=== PATIENT | female | born 1980 | race Two or more races ===

== ENCOUNTER 2025-03-06 18:22 | Emergency (ER) | payer OTHER, SELFPAY ==
[2025-03-06 18:48] VITALS: BP 145/93; PULSE 94; TEMP 36.9; O2SAT 99; BMI 35.6
--- NOTE | 2025-03-06 20:34 | CT_ITS ---
The [address] [address] Patient Name: BALWINDER WASHINGTON MRN: [id number] date: 1980 Sex: F Assigned Patient Location: ER Current Patient Location: ER Accession/Order Number: [id number] Exam Date: 03/06/2025 21:35 Report Date: 03/06/2025 21:40 At the request of: VIOLETTE LINDER MD Procedure: CT lumbar spine wo con CT LUMBAR SPINE WITHOUT CONTRAST TECHNIQUE: Axial acquisition of the lumbar spine obtained with the sagittal and coronal reconstructed imaging.The CT exam was performed using one or more the following dose reduction techniques: Automated exposure control, adjustment of the MA and/or Kv according to patient size, or use of the iterative reconstruction technique. HISTORY: Right lumbar pain. Right leg radiculopathy COMPARISON: None FINDINGS: The last fully segmented vertebral pair is operationally defined as L5/S1. POST SURGERY CHANGES: None BONY ALIGNMENT: Adequate bony alignment identified. SPINAL CANAL:Patent bony central canal LUMBAR FRACTURE: None BONY LESIONS: None KIDNEYS: No hydronephrosis is identified. AORTA: No aortic aneurysm is seen. Lower thoracic level: Unremarkable L1-2:Unremarkable L2-3: Unremarkable L3-4:Unremarkable L4-5:Disc space narrowing. Mild bony central canal stenosis. Mild bilateral neural foraminal narrowing facet degeneration L5-S1:Mild retrolisthesis. Patent central canal. Moderate bilateral bony neural foraminal narrowing facet degeneration Assessment of disc herniation limited with CT examination. No obvious disc herniation seen with CT exam. 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 No obvious disc herniation seen with CT examination. Continued Concern for disc herniation may be further assessed with MRI of lumbar spine. Impression dictated by: Ascencion Maravilla M.D. 03/06/2025 9:40 PM Dictation Location: [employer] Electronically authenticated by: [id number] Y Date: 03/06/2025 21:40
[2025-03-06 20:45] LABS: Bilirubin Urine NEGATIVE (NEGATIVE); Blood Urine NEGATIVE (NEGATIVE); Clarity Urine CLEAR (CLEAR); Color Urine YELLOW (YELLOW); Glucose Urine UA NEGATIVE (NEGATIVE); Ketones Urine TRACE mg/dL (NEGATIVE); Leukocyte Esterase Urine NEGATIVE (NEGATIVE); Nitrite Urine NEGATIVE (NEGATIVE); Protein Urine NEGATIVE (NEG/TRACE); Specific Gravity Urine 1.025 (1.005-1.025); Urobilinogen Urine 0.2 EU/dL (0.2-1.0)
[2025-03-06 20:46] LABS: Urine Microscopic Indicated NO
[2025-03-06] MEDS: KETOROLAC TROMETHAMINE 30 MG/ML VIAL IVP (21:14)
[2025-03-06 21:28] LABS: Basophils Percent Auto 0.4 % (0.2-2.0); Eosinophils Absolute Auto 0.3 10^3/uL (0.0-0.7); Eosinophils Percent Auto 3.8 % (0.9-7.0); Immature Granulocytes Abs Auto 0.04 10^3/uL (0.00-0.03); Immature Granulocytes Pct Auto 0.4 % (0.0-0.5); Lymphocytes Absolute Auto 2.6 10^3/uL (1.2-3.8); Lymphocytes Percent Auto 28.8 % (20.5-60.0); Mean Corpuscular Hemoglobin 20.5 pg (26.7-34.0); Mean Corpuscular Volume 68.5 fL (81.0-99.0); Mean Platelet Volume 9.6 fL (9.5-13.5); Monocytes Absolute Auto 0.5 10^3/uL (0.3-0.8); Monocytes Percent Auto 5.1 % (1.7-12.0); Neutrophils Absolute Auto 5.5 10^3/uL (1.4-6.5); Neutrophils Percent Auto 61.5 % (43.0-75.0); Platelet Count 289 10^3/uL (150-450); Red Blood Count 4.38 10^6/uL (4.20-5.40); Red Cell Distribution Width 19.8 % (11.0-15.0); White Blood Count 8.9 10^3/uL (4.0-11.0)
[2025-03-06 21:46] LABS: Alanine Aminotransferase 19 U/L (14-59); Albumin Globulin Ratio 0.7; Albumin Level 3.1 g/dL (3.4-5.0); Alkaline Phosphatase 99 U/L (46-116); Aspartate Amino Transferase 17 U/L (15-37); BUN Creatinine Ratio 18.3; Bilirubin Total 0.3 mg/dL (0.2-1.0); Calcium 8.7 mg/dL (8.5-10.1); Carbon Dioxide 25.3 mmol/L (21.0-32.0); Chloride 108 mmol/L (98-107); Estimated GFR (African America >60 (>=60 mL/min/1.73m^2); Estimated GFR (Non-African Ame >60 (>=60 mL/min/1.73m^2); Globulin 4.2 g/dL; Glucose 105 mg/dL (74-106); Potassium 3.3 mmol/L (3.5-5.1); Sodium 140 mmol/L (136-145); Total Protein 7.3 g/dL (6.4-8.2)
--- NOTE | 2025-03-06 21:52 | ED.BACK1 ---
HPI HPI - Back Pain/Injury General Chief Complaint: Back Pain/Injury Stated Complaint: Back pain Time Seen by Provider: 03/06/25 19:11 Source: patient Mode of arrival: walk-in Limitations: no limitations History of Present Illness HPI Narrative: This 44-year-old female presents for evaluation of left low back pain. The symptoms have been present for a couple of weeks but worse over the past couple of days. She was seen at [facility] and told she had a lumbar strain. Since that time she has had episodes of urinary incontinence. The patient states she is able to hold her urine but when she feels the urge to go and stands up to go to the bathroom sometimes she does not make it to the bathroom. She is able to squeeze her vagina and rectum. She denies any weakness or numbness. She denies any fever. She denies any chest pain or shortness of breath. She denies any history of chronic back pain or any injury. Related Data Allergies Allergy/AdvReac Type Severity Reaction Status Date / Time amoxicillin Allergy Hives Verified 03/06/25 18:47 Penicillins Allergy Hives Verified 03/06/25 18:47 Review of Systems ROS Status of ROS 10 or more systems reviewed and unremarkable except as noted in history and below PFSH PFSH Social History Little interest or pleasure in doing things: not at all Feeling down, depressed, or hopeless: not at all Exam Narrative Exam Narrative: Vital signs and Nursing Notes reviewed: Patient is afebrile with a normal pulse, blood pressure is mildly elevated 145/93, she has not hypoxic with pulse ox of 99% on room air General: Awake, alert, oriented, no acute distress, ambulatory without difficulty HEENT: Normocephalic atraumatic, mucous membranes are moist and pink, eyes are clear, normal conjunctiva, vision is grossly intact Neck: Supple, no midline bony vertebral tenderness or step-off Chest: Lungs are clear to auscultation with good air entry, there is no wheezing rhonchi or rales appreciated no accessory muscle use, patient is speaking in complete sentences-no chest wall tenderness to palpation CVS: Regular rate and rhythm S1-S2, no murmurs rubs or gallops, pulses are brisk and equal bilaterally ABD: Soft, obese with pendulous abdomen, non-tender, sensation in lower abdomen is normal. Musc: There is tenderness to palpation in the left lower lumbar region, no midline bony vertebral tenderness or step-off noted, Extremities: Moving all extremities, no lower extremity tenderness or swelling noted, negative Homans' sign, pulses are brisk and equal bilaterally Skin: Normal in appearance without rash,pallor, petechiae or purpura Neuro: No focal deficits, deep tendon reflexes are brisk and equal bilaterally. Patient is able to raise both knees up in a marching fashion and go up on her toes, there is no saddle anesthesia, rectal exam was performed and the patient has good rectal tone and is able to squeeze my finger tightly with her rectum Constitutional Vital Signs, click to edit/add: Last Vital Signs Temp 98.4 F 03/06/25 18:48 Pulse 64 03/06/25 22:25 Resp 20 03/06/25 22:25 BP 128/68 03/06/25 22:25 Pulse Ox 98 03/06/25 22:25 O2 Del Method Room Air 03/06/25 22:25 Course Vital Signs Vital signs: Vital Signs Temperature 98.4 F 03/06/25 18:48 Pulse Rate 94 H 03/06/25 18:48 Respiratory Rate 14 03/06/25 18:48 Blood Pressure 145/93 H 03/06/25 18:48 Pulse Oximetry 99 03/06/25 18:48 Oxygen Delivery Method Room Air 03/06/25 18:48 Temperature 98.4 F 03/06/25 18:48 Pulse Rate 64 03/06/25 22:25 Respiratory Rate 20 03/06/25 22:25 Blood Pressure 128/68 03/06/25 22:25 Pulse Oximetry 98 03/06/25 22:25 Oxygen Delivery Method Room Air 03/06/25 22:25 MDM - Back Pain/Injury MDM Narrative Medical decision making narrative: This 44-year-old female presents for evaluation of left low back pain that started last week and worsened this week. She was seen at [facility] and diagnosed with a lumbar strain. She denies any injury. She has not had any fever. She also complains of some urinary incontinence but states she is able to hold her urine but when she feels the urge to urinate and gets up to go to the bathroom she sometimes leaks urine. Her neuroexam is normal including no saddle anesthesia, normal rectal tone, she is able to squeeze her vagina, deep tendon reflexes are normal. CT scan of the lumbar spine was ordered and routine labs were ordered. She has a normal white count and electrolytes. She is not diabetic. CT scan of the lumbar spine shows moderate L4-L5 and L5-S1 degeneration with moderate L4-L5 bony central canal narrowing. No obvious disc herniation was seen on CT scan and examination. It was recommended the patient have an MRI if there is continued concern for disc herniation. In light of the normal CT findings besides some mild degenerative changes and a normal neuroexam I do not think the patient has cauda equina. She will be discharged home with a prescription for [place], Flexeril and ibuprofen. In emergency department she was medicated with Toradol. I did also order steroids but she has had untoward side effects from using steroids in the past. She was encouraged to follow-up closely with her family physician and return the emergency department for any neurologic symptoms related to her back pain, fever or any concerns. Lab Data Labs: Lab Results 03/06/25 03/06/25 Range/Units 20:25 21:14 WBC 8.9 (4.0-11.0) 10^3/uL RBC 4.38 (4.20-5.40) 10^6/uL Hgb 9.0 L (12.0-16.0) g/dL Hct 30.0 L (36.0-48.0) % MCV 68.5 L (81.0-99.0) fL MCH 20.5 L (26.7-34.0) pg MCHC 30.0 (29.9-35.2) g/dL RDW 19.8 H (11.0-15.0) % Plt Count 289 (150-450) 10^3/uL MPV 9.6 (9.5-13.5) fL Neut % (Auto) 61.5 (43.0-75.0) % Lymph % (Auto) 28.8 (20.5-60.0) % [place] % (Auto) 5.1 (1.7-12.0) % Eos % (Auto) 3.8 (0.9-7.0) % Baso % (Auto) 0.4 (0.2-2.0) % Neut # (Auto) 5.5 (1.4-6.5) 10^3/uL Lymph # (Auto) 2.6 (1.2-3.8) 10^3/uL [place] # (Auto) 0.5 (0.3-0.8) 10^3/uL Eos # (Auto) 0.3 (0.0-0.7) 10^3/uL Baso # (Auto) 0.0 (0.0-0.1) 10^3/uL Abs Immat Gran (auto) 0.04 H (0.00-0.03) 10^3/uL Imm/Tot Granulo (auto) 0.4 (0.0-0.5) % Sodium 140 (136-145) mmol/L Potassium 3.3 L (3.5-5.1) mmol/L Chloride 108 H (98-107) mmol/L Carbon Dioxide 25.3 (21.0-32.0) mmol/L Anion Gap 10.0 BUN 13.0 (7.0-18.0) mg/dL Creatinine 0.71 (0.55-1.02) mg/dL Est GFR ( Amer) >60 (>=60 mL/min/1.73m^2) Est GFR (Non-Af Amer) >60 (>=60 mL/min/1.73m^2) BUN/Creatinine Ratio 18.3 Glucose 105 (74-106) mg/dL Calcium 8.7 (8.5-10.1) mg/dL Total Bilirubin 0.3 (0.2-1.0) mg/dL AST 17 (15-37) U/L ALT 19 (14-59) U/L Alkaline Phosphatase 99 (46-116) U/L Total Protein 7.3 (6.4-8.2) g/dL Albumin 3.1 L (3.4-5.0) g/dL Globulin 4.2 g/dL Albumin/Globulin Ratio 0.7 Urine Color Yellow (YELLOW) Urine Clarity Clear (CLEAR) Urine pH 6.0 (5.0-9.0) Ur Specific [place] 1.025 (1.005-1.025) Urine Protein Negative (NEG/TRACE) mg/dL Urine Glucose (UA) Negative (NEGATIVE) mg/dL Urine Ketones Trace A (NEGATIVE) mg/dL Urine Occult Blood Negative (NEGATIVE) Urine Nitrite Negative (NEGATIVE) Urine Bilirubin Negative (NEGATIVE) Urine Urobilinogen 0.2 (0.2-1.0) EU/dL Ur Leukocyte Esterase Negative (NEGATIVE) Discharge Plan Discharge Chief Complaint: Back Pain/Injury Clinical Impression: Lumbosacral strain Patient Disposition: Home, Self-Care Time of Disposition Decision: 21:59 Print Language: Grenadian Instructions: Muscle Strain (ED), Kegel Exercises for Women (DC), Low Back Strain (ED), Lower Back Exercises (ED) Referrals: Physician,Non-Staff, MD [Primary Care Provider] - 1 week Discharge Date/Time: 03/06/25 22:25
[2025-03-06] MEDS: HYDROCODONE/ACET 5-325 MG TABLET 1 TAB PO (22:10)
[2025-03-06] MEDS: ONDANSETRON 4 MG RAPDIS TABLET SL (22:11)
[2025-03-06 22:25] VITALS: BP 128/68; PULSE 64; O2SAT 98
== END 2025-03-06 22:25 | disposition home or self-care (01) ==
PROVIDERS: Emergency Provider Emergency Medicine
DX: S39.012A Strain of muscle, fascia and tendon of lower back, initial encounter (principal); X58.XXXA Exposure to other specified factors, initial encounter
CPT/HCPCS: 36415; 72131; 80053; 81003; 85025; 96374; 99285; J1885; Q0162